=== PATIENT | female | born 1980 ===

== ENCOUNTER 2019-10-18 09:28 | Inpatient (IN) | payer MEDICAID ==
--- NOTE | 2019-10-17 17:21 | History and Physical Report ---
History of Present Illness Date of examination: 10/17/19 Chief complaint: scheduled History of present illness: Pt is a 39 year old female SANDRA 11/03/19 at 37w4d who presents for scheduled section. She reports good movement and denies vaginal bleeding or leakage of fluid. She has had care at [facility] with comanagement by MFM secondary to IUGR, chronic hypertension on labetalol 200mg BID, three prior sections, Advanced Maternal Age, Anxiety and genital herpes without lesion or prodrome. She is GBS positive. She does not desire future fertility. Operative note from pt's section in 2013 has been obtained and reviewed. Prior surgeon made comment regarding thick adhesion from anterior surface of the uterus to the anterior abdominal wall. Also advised avoiding future and consideration of vertical skin incision with possible classical section if she requires subsequent surgery. Past History Past Medical History: hypertension Past Surgical History: section (2000, 2004, 2013) HUMAN RESOURCES OFFICER History: herpes Family/Genetic History: hypertension Social history: no significant social history - Obstetrical History Expected Date of Delivery: 11/03/19 Actual Gestation: 37 Week(s) 4 Day(s) : 6 Para: 3 Hx # Term Pregnancies: 3 Number of Pregnancies: 0 Spontaneous Abortions: 0 Induced : 2 Number of Living Children: 3 Review of Systems All systems: negative - Physical Exam Breasts: Positive: deferred Abdomen: Positive: soft (gravid ) Uterus: Positive: enlarged (gravid ) Extremities: Positive: normal - Obstetrical FHR: auscultation normal Uterine Contraction Monitor Mode: External Uterine Contraction Pattern: Regular Uterine Tone Measurement Phase: Resting Results All other labs normal. Assessment and Plan A: IUP at 37w5d Chronic hypertension on Labetalol IUGR Previous x 3 with note of adhesive disease on last operative report Advanced Maternal Age Genital Herpes Undesired Fertility GBS positive P: Proceed with repeat section, bilateral salpingectomy and other indicated procedures
[2019-10-18 10:12] LABS: Hemoglobin 11.5 gm/dl (10.1-14.3); Mean Corpuscular HGB Conc 33 % (30-34); Mean Corpuscular Volume 82 fl (79-97); Platelet Count 189 K/mm3 (140-440); Red Blood Count 4.26 M/mm3 (3.65-5.03); Red Cell Distribution Width 13.4 % (13.2-15.2)
[2019-10-18] MEDS ORDERED: BICITRA ORAL LIQD 30ML PO NR (10:30)
[2019-10-18] MEDS ORDERED: METOCLOPRAMIDE 10 MG/2 ML INJ IV NR (10:30)
[2019-10-18] MEDS ORDERED: OXYTOCIN 20 UNIT/1000ML DRIP 20 UNITS/1,000 ML BAG IV SCH ×2 (10:30→17:03)
[2019-10-18] MEDS ORDERED: ceFAZolin/Water 2 GM/20 ML 2 GM/20 ML SYRINGE IV NR (10:30)
[2019-10-18] MEDS ORDERED: FAMOTIDINE 20 MG/2 ML INJ IV NR (10:30)
--- NOTE | 2019-10-18 10:37 | Anesthesia Consultation ---
Anesthesia Consult and Med Hx Date of service: 10/18/19 - Airway Anesthetic Teeth Evaluation: Good ROM Head & Neck: Adequate Mental/Hyoid Distance: Adequate Mallampati Class: Class II Intubation Access Assessment: Good - Pulmonary Exam CTA: Yes - Cardiac Exam Cardiac Exam: RRR - Pre-Operative Health Status ASA Pre-Surgery Classification: ASA2 Proposed Anesthetic Plan: Spinal - Pre-Anesthesia Comment Pre-Anesthesia Comments: hx of difficult spinal - Cardiovascular System Hx Hypertension: Yes
[2019-10-18] MEDS ORDERED: ONDANSETRON 4 MG/2 ML INJ IV PRN ×2 (10:38→17:03)
[2019-10-18] MEDS ORDERED: PROMETHAZINE 25 MG RECT SUPP PR PRN (10:38)
[2019-10-18] MEDS ORDERED: NALOXONE 0.4 MG/1 ML INJ IV PRN ×2 (10:38→17:03)
[2019-10-18] MEDS ORDERED: HYDROmorphone 1 MG/1 ML INJ IV PRN ×2 (10:38)
[2019-10-18] MEDS ORDERED: PROMETHAZINE 25 MG TAB PO PRN (10:38)
--- NOTE | 2019-10-18 10:38 | Anesthesia Day of Surgery ---
Anesthesia Day of Surgery - Day of Surgery Patient Examined: Yes Patient H&P Reviewed: Yes Patient is NPO: Yes
[2019-10-18] MEDS ORDERED: fentaNYL-BUPIV 2 MCG/ML-0.125% 200 MCG/100 ML BAG EPIDURAL SCH (11:00)
[2019-10-18] MEDS: LACTATED RINGERS 1,000 ML IV SCH ×2 (11:08→11:09)
[2019-10-18 11:37] LABS: Band Neutrophils # (Manual) 0.1 K/mm3; Basophils % (Manual) 0 % (0.0-1.8); Total Cells Counted 100
[2019-10-18 11:38] LABS: Anisocytosis 1+; Platelet Estimate Consistent w Auto
[2019-10-18] MEDS ORDERED: WATER FOR IRRIG STERILE 1,500 ML BOTTLE IR ONE (11:45)
[2019-10-18] MEDS ORDERED: ceFAZolin/STERILE WATER 2 GM/20 ML SYRINGE IV ONE (11:45)
[2019-10-18] MEDS ORDERED: SODIUM CHLORIDE 0.9% IRR 1,500 ML BOTTLE IR ONE (11:45)
[2019-10-18] MEDS ORDERED: ONDANSETRON 4 MG/2 ML INJ ONE (12:29)
[2019-10-18] MEDS ORDERED: KETOROLAC 30 MG/1 ML INJ ONE (12:29)
[2019-10-18] MEDS ORDERED: diphenhydrAMINE 50 MG/ML VIAL ONE (12:29)
[2019-10-18] MEDS ORDERED: PHENYLEPHRINE 10 MG/1 ML INJ SDV ONE (12:31)
[2019-10-18] MEDS ORDERED: HYDROmorphone 1 MG/1 ML INJ ONE (13:34)
--- NOTE | 2019-10-18 13:41 | Procedure Note ---
OB Delivery Note - Delivery Date of Delivery: 10/18/19 Surgeon: LIUDMILA ENRIQUEZ Library Monitor: RICHARD GREENBERG (\) Estimated blood loss: other (800 mL) - Section Preop diagnosis: repeat , desires sterilization, other (Chronic HTN, IUGR ) Postop diagnosis: same section procedure: section, bilateral tubal ligation, other (Repeat classical ) Disposition: PACU Complications: none Narrative: Please see operative note. - Infant A at 1 minute: 8 at 5 minutes: 9 Gender: Female (2928g (6ln 7oz) @ 1224 pm)
--- NOTE | 2019-10-18 13:43 | Operative Report ---
Operative Report Operative Report: Date of procedure: October 18, 2019 Preoperative diagnoses: 1) IUP at 37w5d 2) Chronic HTN controlled on medication 3) IUGR 4) Previous Section x 3 5) Adhesive disease overlying lower uterine segment 6) Obesity 7) Advanced Maternal Age 8) Undesired Fertility Postoperative diagnoses: Same Procedure: 1) Repeat classical section 2) Bilateral tubal ligation via Filshie Clip Method Surgeon: Sara Cervantes MD Data Warehousing Manager: Mary Kay Silva MD Anesthesia: Regional Findings: 1) Viable female ; Apgars 8,9; wt 2928g (6lb 7oz) in cephalic presentation 2) Dense adhesive disease overlying the lower uterine segment EBL: 800 mL IVF: 2000 mL Urine output: 200 mL, clear at the end of the procedure Drains: Escobar to gravity Complications: None Disposition: Stable to PACU Indication for procedure: The patient is a 39 year old female SANDRA 11/03/19 at 37w5d who presents for scheduled section secondary to chronic HTN on Labetalol, IUGR, prior x 3 with known dense adhesions overlying lower uterine segment with recommendation for vertical skin incision and classical section in operative report from 2013. She does not desire future fertility. Operative procedure in detail: The patient was taken to the operating room with IV noted to be running well and placed in the dorsal supine position with leftward tilt. Regional anesthesia was noted to be adequate. FHTs were noted to be in the 150s prior to incision. She was prepped and draped in a normal sterile fashion. Time out was then performed. A infraumbilical midline skin incision was then made with the knife and carried down to the fascia with the Bovie. The fascia was incised with the knife and the incision was extended with the Bovie. The peritoneum was then visible, was grasped between two hemostats and incised with scissors to allow entry into the peritoneal cavity. The peritoneal incision was extended and then stretched. At this time dense adhesions overlying the lower uterine segment were noted. An Gerald retractor was placed. The bladder blade was placed. A classical uterine incision was created with the knife and extended with bandage scissors. Amniotomy was performed with egress of clear fluid. With some difficulty the fetus was delivered via breech extraction. The was bulb suctioned at delivery. The cord was clamped and cut and handed to NICU team. Cord blood was collected. The placenta was then delivered manually. The uterus was exteriorized and cleared of all clots and debris. The first layer of the endometrium was reapproximated with 0-Vicryl in a running, locked fashion. The remainder of the myometrium and serosa were closed with 2-0Vicryl in a in terrupted fashion. Additional figure of eights of 2-0 Vicryl were used to obtain hemostasis. The incision was inspected and noted to be hemostatic. Attention was then turned to the tubal ligation. The right fallopian tube was identified and followed to the fimbriae. Two Filshie clips were then placed across the ampulla of the right tube. In a similar fashion, the left fallopian tube was identified and two Filshie clips were placed across the ampulla of the left fallpian tube. Hemostasis was noted. The uterus was then returned to the endometrial cavity and the Gerald retractor was removed.The gutters were then irrigated and cleared of all clots and debris.The uterine incision was again inspected and noted to be hemostatic. Hemoblast was then placed over the uterine incision. Surgicel was placed over the uterine incision. Interceed was placed on the anterior surface of the uterus. All instruments were removed from the abdominal cavity. The fascia was then reapproximated with 0 PDS in a running fashion. The subcutaneous tissue was reapproximated with 2-0 Vicryl in an interrupted fashion. The skin was reapproximated with sang. The incision was then covered with a pressure dressing. At this time the procedure was ended. All instrument, lap and needle counts were correct x 3. The patient was then taken to the PACU in stable condition.
[2019-10-18] MEDS ORDERED: SODIUM CHLORIDE 0.9% 100 ML ONE (14:46)
[2019-10-18] MEDS ORDERED: BUPIVACAINE/PF (0.5%) 5 MG/1 ML 30 ML VIAL INFILTRATI ONE (14:46)
[2019-10-18] MEDS ORDERED: dexAMETHasone 20 MG/5 ML VIAL ONE (14:46)
[2019-10-18] MEDS ORDERED: SIMETHICONE 80 MG CHEW TAB PO PRN (17:03)
[2019-10-18] MEDS ORDERED: IBUPROFEN 800 MG TAB PO PRN (17:03)
[2019-10-18] MEDS ORDERED: LANOLIN/ZINC/DIMETHICONE (LANSINOH) 7 GM TP PRN (17:03)
[2019-10-18] MEDS ORDERED: D5W/LACTATED RINGERS 1,000 ML IV SCH (17:03)
[2019-10-18] MEDS ORDERED: MAGNESIUM HYDROXIDE (MOM) ORAL LIQD UDC PO PRN (17:03)
[2019-10-18] MEDS ORDERED: WITCH HAZEL/ GLYCERIN PAD TP PRN (17:03)
[2019-10-18] MEDS: KETOROLAC 30 MG/1 ML INJ IV SCH (20:14)
[2019-10-18] MEDS: ceFAZolin/NS 1 GM/50 ML 1 GM/50 ML BAG IV SCH (20:15)
[2019-10-18 23:09] LABS: Hemoglobin 9.6 gm/dl (10.1-14.3); Mean Corpuscular HGB Conc 33 % (30-34); Mean Corpuscular Volume 82 fl (79-97); Platelet Count 190 K/mm3 (140-440); Red Blood Count 3.49 M/mm3 (3.65-5.03); Red Cell Distribution Width 13.6 % (13.2-15.2)
[2019-10-18 23:11] LABS: Bilirubin,Urine NEG (Negative); Blood,Urine SM (Negative); Color,Urine Yellow (Yellow); Hyaline Casts,Urine 2 /LPF; Mucus,Urine 2+ /HPF; Protein,Urine <15 mg/dL mg/dL (Negative); Urobilinogen,Urine < 2.0 mg/dL (<2.0)
[2019-10-18 23:16] LABS: Hematocrit 28.7 % (30.3-42.9)
[2019-10-18 23:24] LABS: Alanine Aminotransferase 13 units/L (7-56)
[2019-10-19 01:33] LABS: Hematocrit 27.8 % (30.3-42.9)
[2019-10-19] MEDS: KETOROLAC 30 MG/1 ML INJ IV SCH (03:25)
[2019-10-19] MEDS: ceFAZolin/NS 1 GM/50 ML 1 GM/50 ML BAG IV SCH (03:45)
[2019-10-19 04:40] LABS: Uric Acid 3.4 mg/dL (3.5-7.6)
[2019-10-19] MEDS: oxyCODONE /ACETAMINOPHEN 5-325MG TAB PO PRN ×4 (04:52→22:21)
[2019-10-19] MEDS ORDERED: TETANUS,DIPH,PERTUSS(ACELL) VACCINE 0.5 ML SYRINGE IM ONE (06:00)
[2019-10-19] MEDS: FERROUS SULFATE 325 MG TAB PO SCH (10:43)
--- NOTE | 2019-10-19 13:20 | Progress Note ---
Assessment and Plan POD1 s/p classical and BTL Chronic HTN, on Labetalol BID Acute anemia- ferrous sulfate Continue current care D/c to home on POD3 Subjective - Subjective Date of service: 10/19/19 Principal diagnosis: s/p repeat classical and BTL Interval history: Pt is POD1 s/p repeat classical cesearean and BTL. She has resumed Labetalol for chronic HTN. Patient reports: appetite normal, voiding normally, pain well controlled, flatus, ambulating normally : doing well, nursing well (both), bottle feeding Objective - Vital Signs Latest vital signs: Vital Signs Temp Pulse Resp BP BP Pulse Ox 10/19/19 10:43 148/88 10/19/19 07:37 98.1 F 102 H 20 135/89 94 10/19/19 04:50 98.3 F 97 H 20 136/89 95 10/19/19 02:14 98.1 F 97 H 20 140/89 95 10/18/19 21:28 157/103 10/18/19 21:26 150/105 10/18/19 16:35 98.5 F 106 H 20 144/87 95 10/18/19 14:55 82 127/71 100 10/18/19 14:40 88 114/74 100 10/18/19 14:25 98 H 133/92 100 10/18/19 14:20 98 H 110/88 100 10/18/19 14:05 103 H 128/65 100 10/18/19 13:55 94 H 118/58 100 10/18/19 13:50 104 H 103/59 100 10/18/19 13:49 78 108/68 100 10/18/19 13:45 98.2 F 85 115/67 100 Intake and Output 10/18/19 10/19/19 10/19/19 23:59 07:59 15:59 Intake Total 50 120 360 Output Total 200 400 500 Balance -150 -280 -140 Intake: IV 50 ANCEF/NS 1 GM/50 ML 1 gm 50 In 50 ml @ 100 mls/hr IV Q8H [facility] Rx#:[id number] Oral 120 360 Output: Urine 200 400 500 Indwelling Catheter 200 400 Void 500 Other: Total, Intake Amount 120 360 Total, Output Amount 200 400 500 - Exam Lungs: Present: Normal air movement Abdomen: Present: soft Uterus: Present: firm, fundal height below umbilicus Extremities: Present: normal Incision: Present: dressed - Labs Labs: Abnormal lab results 10/18/19 10/18/19 10/18/19 Range/Units 22:10 22:48 22:48 WBC 12.7 H (4.5-11.0) K/mm3 RBC 3.49 L (3.65-5.03) M/mm3 Hgb 9.6 L (10.1-14.3) gm/dl Hct 28.7 L D (30.3-42.9) % MCH 27 L (28-32) pg Creatinine 0.4 L (0.7-1.2) mg/dL Uric Acid 3.4 L (3.5-7.6) mg/dL Lactate Dehydrogenase 267 H (91-180) units/L Urine WBC (Auto) 11.0 H (0.0-6.0) /HPF 10/19/19 Range/Units 01:20 WBC (4.5-11.0) K/mm3 RBC (3.65-5.03) M/mm3 Hgb 9.0 L (10.1-14.3) gm/dl Hct 27.8 L (30.3-42.9) % MCH (28-32) pg Creatinine (0.7-1.2) mg/dL Uric Acid (3.5-7.6) mg/dL Lactate Dehydrogenase (91-180) units/L Urine WBC (Auto) (0.0-6.0) /HPF
[2019-10-19] MEDS ORDERED: MEASLES, MUMPS & RUBELLA 12,500 UNIT/0.5 ML VACCINE SUB-Q ONE (13:45)
[2019-10-20] MEDS: oxyCODONE /ACETAMINOPHEN 5-325MG TAB PO PRN ×2 (03:02→13:10)
[2019-10-20 08:26] LABS: Hematocrit 28.2 % (30.3-42.9); Hemoglobin 9.3 gm/dl (10.1-14.3)
[2019-10-20 09:10] VITALS: BP 159/103
[2019-10-20] MEDS: FERROUS SULFATE 325 MG TAB PO SCH (13:00)
--- NOTE | 2019-10-20 15:03 | Progress Note ---
Assessment and Plan A: POD#2 s/p repeat classical section and bilateral tubal ligation Acute blood loss anemia P: Routine postoperative care RTC in 10 days for staple removal Subjective - Subjective Date of service: 10/20/19 Principal diagnosis: s/p repeat classical and BTL Interval history: Pt asking to go home and sleep in her own bed tonight. She reports good pain control and denies heavy vaginal bleeding. + flatus. + bowel movement. Patient reports: appetite normal, voiding normally, pain well controlled, flatus, bowel movement, ambulating normally [place]: doing well Objective - Vital Signs Latest vital signs: Vital Signs Temp Pulse Resp BP BP BP Pulse Ox 10/20/19 08:08 98.6 F 97 H 18 159/103 10/20/19 04:00 98.7 F 71 18 119/78 10/20/19 00:21 98.2 F 92 H 18 128/80 10/19/19 22:36 97 H 16 157/104 96 10/19/19 22:15 92 H 157/104 10/19/19 16:41 98.7 F 105 H 20 139/94 96 Intake and Output 10/20/19 10/20/19 10/20/19 06:59 14:59 22:59 Intake Total 300 480 Balance 300 480 Intake: Oral 480 Intake, Free Water 300 Other: Total, Intake Amount 480 Voiding Method Toilet # Voids Void 1 - Exam Breasts: Present: deferred Cardiovascular: Present: Regular rate Lungs: Present: Clear to auscultation Abdomen: Present: soft Uterus: Present: fundal height below umbilicus Extremities: Present: edema (trace) Incision: Present: dressed - Labs Labs: Abnormal lab results 10/20/19 Range/Units 08:04 Hgb 9.3 L (10.1-14.3) gm/dl Hct 28.2 L (30.3-42.9) %
--- NOTE | 2019-10-20 15:05 | Discharge Summary ---
Providers - Providers Date of Admission: 10/18/19 09:28 Date of discharge: 10/20/19 Attending physician: RICHARD GREENBERG MD Primary care physician: RICHARD GREENBERG MD Hospitalization Reason for admission: section Delivery: Procedure: section, bilateral tubal ligation, vertical (classical ) Procedure details: Please see operative note. Episiotomy: none Laceration: none Incision: dressed Other procedures: none complications: none Discharge diagnosis: IUP at term delivered Browns baby: female Hospital course: Pt underwent repeat classical section with bilateral tubal ligation via Filshie clip method which she tolerated well. Her postoperative course was uncomplicated and she met discharge criteria on POD#2. She will follow up in 10 days for staple removal and blood pressure check. Condition at discharge: Stable Disposition: DC- TO HOME OR SELFCARE - Discharge Diagnoses (1) Term of female Status: Acute (2) S/P section Status: Acute (3) Obesity Status: Acute Qualifiers: Obesity type: unspecified obesity type Obesity classification: adult class 2 (BMI 35 - 39.9) Serious obesity comorbidity presence: unspecified whether serious comorbidity present Body mass index: BMI 36.0-36.9 Qualified Code(s): E66.9 - Obesity, unspecified; Z68.36 - Body mass index (BMI) 36.0-36.9, adult (4) Advanced maternal age (AMA) in Status: Acute (5) Chronic hypertension affecting Status: Acute (6) Acute blood loss as cause of postoperative anemia Status: Acute Plan - Discharge Medications Prescriptions: Ferrous Sulfate [Feosol 325 MG tab] 325 mg PO BID #30 tablet Ibuprofen [Motrin] 600 mg PO Q8H PRN #30 tablet PRN Reason: Pain oxyCODONE /ACETAMINOPHEN [Percocet 5/325] 1 tab PO Q6HR PRN #30 tablet PRN Reason: Pain - Provider Discharge Summary Activity: routine, no sex for 6 weeks, no heavy lifting 4 weeks, no strenuous exercise Diet: routine Instructions: routine Additional instructions: [] Smoking cessation referral if applicable(refer to patient education folder for contact #) [] Refer to [facility]'s [facility] Booklet Call your doctor immediately for: * Fever > 100.5 * Heavy vaginal bleeding ( >1 pad per hour) * Severe persistent headache * Shortness of breath * Reddened, hot, painful area to leg or breast * Drainage or odor from incision. * Keep incision clean and dry at all times and follow doctor's instructions regarding bathing/showering - Follow up plan Follow up: ABNER XIONG MD [Staff Physician] - 10/30/19 (Please call to schedule appt for staple removal )
== END 2019-10-20 17:40 | disposition home or self-care (01) | DRG 765 ==
LOC: APU 09:28 → OB 16:50
PROVIDERS: ADMIT Obstetrics & Gynecology; ATTEND Obstetrics & Gynecology
PROC: 10D00Z0 Extraction of Products of Conception, High, Open Approach (ICD-10-PCS; principal; 2019-10-18)
PROC: 0UL70CZ Occlusion of Bilateral Fallopian Tubes with Extraluminal Device, Open Approach (ICD-10-PCS; 2019-10-18)
PROC: 3E0234Z Introduction of Serum, Toxoid and Vaccine into Muscle, Percutaneous Approach (ICD-10-PCS; 2019-10-19)
PROC: 3E0134Z Introduction of Serum, Toxoid and Vaccine into Subcutaneous Tissue, Percutaneous Approach (ICD-10-PCS; 2019-10-19)
DX: O10.92 Unspecified pre-existing hypertension complicating childbirth (principal); O98.32 Other infections with a predominantly sexual mode of transmission complicating childbirth; D62 Acute posthemorrhagic anemia; O36.5930 Maternal care for other known or suspected poor fetal growth, third trimester, not applicable or unspecified; O34.211 Maternal care for low transverse scar from previous cesarean delivery; A60.00 Herpesviral infection of urogenital system, unspecified; O99.214 Obesity complicating childbirth; E66.9 Obesity, unspecified; O99.824 Streptococcus B carrier state complicating childbirth; O99.02 Anemia complicating childbirth; Z3A.37 37 weeks gestation of pregnancy; Z37.0 Single live birth; Z23 Encounter for immunization; Z79.899 Other long term (current) drug therapy; Z30.2 Encounter for sterilization
CPT/HCPCS: 36415; 81001; 82565; 83615; 84450; 84460; 84550; 85007; 85014; 85018; 85025; 85027; 86850; 86900; 86901; 87086; G0378; A6250; J0690; J1100; J1170; J1200; J1885; J2370; J2405; J2590; J2765; J7120; J7121